=== PATIENT | female | born 1955 | race Caucasian/White ===

== ENCOUNTER 2016-12-13 13:49 | Emergency (ER) | payer OTHER ==
[~2016-12-13] VITALS: Ht 162.6 cm; Wt 59.8 kg
[~2016-12-13 13:49] MED LIST: DILT31TA PO; MECL25 PO; PRIL10CA PO; PROC25R PR; PROP10TA26 PO
[2016-12-13 13:58] VITALS: BP 138/79; PULSE 84; RESP 18; TEMP 97.5; O2SAT 99
[2016-12-13] MEDS ORDERED: PROP40TA3 PO (14:05)
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
== END 2016-12-13 15:40 | disposition home or self-care (01) ==
LOC: PHEFT 13:49
DX: S86.911A Strain of unspecified muscle(s) and tendon(s) at lower leg level, right leg, initial encounter (principal); Z86.79 Personal history of other diseases of the circulatory system; V89.2XXA Person injured in unspecified motor-vehicle accident, traffic, initial encounter
CPT/HCPCS: 73564; 99283